=== PATIENT | female | born 1975 | race Caucasian/White ===

== ENCOUNTER 2017-12-08 11:43 | Emergency (ER) | payer OTHER ==
[~2017-12-08] VITALS: Ht 149.9 cm; Wt 72.1 kg
[2017-12-08 12:12] LABS: URINE BILIRUBIN NEGATIVE (Negative); URINE BLOOD NEGATIVE (Negative); URINE CLARITY CLEAR; URINE COLOR YELLOW; URINE GLUCOSE-RANDOM* NEGATIVE (Negative); URINE KETONES NEGATIVE (Negative); URINE LEUKOCYTES-REFLEX NEGATIVE (Negative); URINE NITRITE-REFLEX NEGATIVE (Negative); URINE PROTEIN (DIPSTICK) NEGATIVE (Negative); URINE SPECIFIC GRAVITY >= 1.030 (1.005-1.035)
[2017-12-08 12:52] LABS: CALCIUM 8.5 mg/dL (8.5-10.1); CREATININE 0.8 mg/dL (0.6-1.0); POTASSIUM 3.6 mmol/L (3.5-5.1)
[2017-12-08 12:58] LABS: ABSOLUTE NEUTROPHILS 3.4 thou/uL (1.4-8.2); ALBUMIN 3.9 g/dL (3.4-5.0); BASOPHILS 0.7 % (0.0-2.0); EOSINOPHILS 5.3 % (0.0-3.0); HEMATOCRIT 35.9 % (37.0-47.0); HEMOGLOBIN 12.6 gm/dL (12.0-15.0); LYMPHOCYTES 24.3 % (24.0-44.0); MCH 34.8 pg (26.0-34.0); MCHC 35.1 g/dL (28.0-37.0); MCV 99.2 fL (80.0-100.0); MONOCYTES 7.4 % (1.0-8.0); PLATELET COUNT 203 thou/uL (150-400); POLYS 62.3 % (36.0-66.0); RBC 3.62 mil/uL (4.20-5.00); RDW 12.4 % (10.5-14.5); TOTAL BILIRUBIN 0.2 mg/dL (<0.1-1.0); TOTAL PROTEIN 7.8 g/dL (6.4-8.2); WBC 5.4 thou/uL (4.0-11.0)
[2017-12-08] MEDS ORDERED: NAPROSYN500 MG PO (14:00)
[2017-12-08 14:47] VITALS: BP 126/80
== END 2017-12-08 14:48 | disposition home or self-care (01) ==
LOC: ER 11:43
PROVIDERS: Emergency Medicine
DX: R10.31 Right lower quadrant pain (principal); M79.605 Pain in left leg; F32.9 Major depressive disorder, single episode, unspecified; Z98.890 Other specified postprocedural states; Z88.8 Allergy status to other drugs, medicaments and biological substances

== ENCOUNTER → 2020-04-07 | Outpatient (CLI) | payer OTHER ==
[~2020-04-07] MED LIST: NAPROSYN500 MG PO
== END ==
LOC: RAD 15:27
PROVIDERS: ATTEND Neuromusculoskeletal Medicine & OMM
DX: M48.02 Spinal stenosis, cervical region (principal); M54.12 Radiculopathy, cervical region; M19.041 Primary osteoarthritis, right hand; M19.042 Primary osteoarthritis, left hand

== ENCOUNTER → 2020-04-25 | Outpatient (CLI) | payer OTHER | LOC: MRI 13:13 | PROVIDERS: ATTEND Neuromusculoskeletal Medicine & OMM | DX: M51.37 Other intervertebral disc degeneration, lumbosacral region (principal); M48.07 Spinal stenosis, lumbosacral region ==

== ENCOUNTER → 2020-05-30 | Outpatient (CLI) | payer OTHER ==
[~2020-05-30] VITALS: Ht 144.8 cm; Wt 52.2 kg
[~2020-05-30] MED LIST changes: +ADVIL MIGRAINE200 M1 PO; +MEDROLDOSEPACK PO; +MOBIC15 MG PO; +SUPER THERAVIT1 EACH PO
[2020-05-30 13:54] VITALS: BP 130/71
--- NOTE | 2020-05-30 14:18 | NUR ---
Pain Clinic Assessment: 1. History of Osteoarthritis: SPINE History of Rheumatoid Arthritis: Not Applicable 2. Height: 4 ft. 9 in. 144.8 cm. Weight: 115.0 lb. oz. 52.164 kg. Patient's BMI: 24.9 3. Vital Signs: BP: 130/71 Pulse: 85 Resp: 14 Temp: 02 Sat: 96 ECG Mon: 4. Pain Intensity: 6 5. Fall Risk: Dizziness: N Needs help standing or walking: Y Fallen in the last 3 months: N Fall risk comments: 6. Patient on Blood Thinner: None 7. History of Hypertension: N 8. Opioid Therapy greater than 6 weeks: N Opiate Contract Signed: 9. Risk Assessment Tool Provided: * 10. Functional Assessment Tool: 53/ 11. Recreational Drug Use: Never Drug Type: Tobacco Use: Never Smoker Tobacco Type: Amount or Packs/day: How Many Years: Alcohol Use: No Frequency: Quant:
== END ==
LOC: PAIN 07:00
PROVIDERS: ATTEND Anesthesiology Pain Medicine
DX: M54.16 Radiculopathy, lumbar region (principal); G89.29 Other chronic pain; Z79.891 Long term (current) use of opiate analgesic

== ENCOUNTER → 2020-06-06 | Outpatient (CLI) | payer OTHER ==
[~2020-06-06] VITALS: Ht 144.8 cm; Wt 52.4 kg
[2020-06-06 10:58] VITALS: BP 106/72
--- NOTE | 2020-06-06 11:17 | NUR ---
Pain Clinic Assessment: 1. History of Osteoarthritis: SPINE History of Rheumatoid Arthritis: Not Applicable 2. Height: 4 ft. 9 in. 144.8 cm. Weight: 115.6 lb. oz. 52.436 kg. Patient's BMI: 25.0 3. Vital Signs: BP: 106/72 Pulse: 81 Resp: 14 Temp: 02 Sat: 98 ECG Mon: 4. Pain Intensity: 3 5. Fall Risk: Dizziness: N Needs help standing or walking: N Fallen in the last 3 months: N Fall risk comments: 6. Patient on Blood Thinner: None 7. History of Hypertension: N 8. Opioid Therapy greater than 6 weeks: N Opiate Contract Signed: 9. Risk Assessment Tool Provided: * 10. Functional Assessment Tool: 53/ 11. Recreational Drug Use: Never Drug Type: Tobacco Use: Never Smoker Tobacco Type: Amount or Packs/day: How Many Years: Alcohol Use: No Frequency: Quant:
== END | disposition home or self-care (01) ==
LOC: PAIN 06:56
PROVIDERS: ATTEND Anesthesiology Pain Medicine
DX: M54.16 Radiculopathy, lumbar region (principal); M48.062 Spinal stenosis, lumbar region with neurogenic claudication; G89.29 Other chronic pain; M54.2 Cervicalgia; F32.9 Major depressive disorder, single episode, unspecified; Z98.890 Other specified postprocedural states; Z79.899 Other long term (current) drug therapy; Z88.8 Allergy status to other drugs, medicaments and biological substances

== ENCOUNTER → 2020-07-23 | Outpatient (CLI) | payer OTHER ==
[~2020-07-23] VITALS: Ht 144.8 cm; Wt 54.2 kg
[~2020-07-23] MED LIST changes: +HYDROCODON-ACE1 EAC7 PO
[2020-07-23 14:03] VITALS: BP 115/70
--- NOTE | 2020-07-23 14:11 | NUR ---
Pain Clinic Assessment: 1. History of Osteoarthritis: SPINE History of Rheumatoid Arthritis: Not Applicable 2. Height: 4 ft. 9 in. 144.8 cm. Weight: 119.4 lb. oz. 54.159 kg. Patient's BMI: 25.8 3. Vital Signs: BP: 115/70 Pulse: 72 Resp: 14 Temp: 02 Sat: 98 ECG Mon: 4. Pain Intensity: 8 5. Fall Risk: Dizziness: N Needs help standing or walking: N Fallen in the last 3 months: N Fall risk comments: 6. Patient on Blood Thinner: None 7. History of Hypertension: N 8. Opioid Therapy greater than 6 weeks: N Opiate Contract Signed: 9. Risk Assessment Tool Provided: 0-low risk 10. Functional Assessment Tool: 53/ 11. Recreational Drug Use: Never Drug Type: Tobacco Use: Never Smoker Tobacco Type: Amount or Packs/day: How Many Years: Alcohol Use: No Frequency: Quant:
== END ==
LOC: PAIN 06:56
PROVIDERS: ATTEND Anesthesiology Pain Medicine
DX: M54.5 Low back pain (principal); F32.9 Major depressive disorder, single episode, unspecified; M54.16 Radiculopathy, lumbar region; G89.29 Other chronic pain; M54.2 Cervicalgia

== ENCOUNTER → 2020-09-26 | Outpatient (CLI) | payer OTHER ==
[~2020-09-26] VITALS: Ht 144.8 cm; Wt 56.2 kg
[~2020-09-26] MED LIST changes: +IBUPROFEN 800800 M1 PO
[2020-09-26 12:39] VITALS: BP 113/76
--- NOTE | 2020-09-26 12:43 | NUR ---
Pain Clinic Assessment: 1. History of Osteoarthritis: SPINE History of Rheumatoid Arthritis: Not Applicable 2. Height: 4 ft. 9 in. 144.8 cm. Weight: 124.0 lb. oz. 56.246 kg. Patient's BMI: 26.8 3. Vital Signs: BP: 113/76 Pulse: 70 Resp: 14 Temp: 02 Sat: 98 ECG Mon: 4. Pain Intensity: 9 5. Fall Risk: Dizziness: N Needs help standing or walking: N Fallen in the last 3 months: N Fall risk comments: 6. Patient on Blood Thinner: None 7. History of Hypertension: N 8. Opioid Therapy greater than 6 weeks: N Opiate Contract Signed: 9. Risk Assessment Tool Provided: 0-low risk 10. Functional Assessment Tool: 53/ 11. Recreational Drug Use: Never Drug Type: Tobacco Use: Never Smoker Tobacco Type: Amount or Packs/day: How Many Years: Alcohol Use: No Frequency: Quant:
== END | disposition home or self-care (01) ==
LOC: PAIN 07:06
PROVIDERS: ATTEND Anesthesiology Pain Medicine
DX: M54.16 Radiculopathy, lumbar region (principal); G89.29 Other chronic pain; M48.062 Spinal stenosis, lumbar region with neurogenic claudication; M54.2 Cervicalgia; M19.90 Unspecified osteoarthritis, unspecified site; F32.9 Major depressive disorder, single episode, unspecified; Z98.890 Other specified postprocedural states; Z79.899 Other long term (current) drug therapy; Z88.8 Allergy status to other drugs, medicaments and biological substances

== ENCOUNTER → 2020-11-21 | Outpatient (CLI) | payer OTHER ==
[~2020-11-21] VITALS: Ht 144.8 cm; Wt 55.9 kg
[2020-11-21 13:57] VITALS: BP 104/62
--- NOTE | 2020-11-21 14:35 | NUR ---
Pain Clinic Assessment: 1. History of Osteoarthritis: SPINE History of Rheumatoid Arthritis: Not Applicable 2. Height: 4 ft. 9 in. 144.8 cm. Weight: 123.3 lb. oz. 55.928 kg. Patient's BMI: 26.7 3. Vital Signs: BP: 104/62 Pulse: 68 Resp: 14 Temp: 02 Sat: 96 ECG Mon: 4. Pain Intensity: 8 5. Fall Risk: Dizziness: N Needs help standing or walking: N Fallen in the last 3 months: N Fall risk comments: 6. Patient on Blood Thinner: None 7. History of Hypertension: N 8. Opioid Therapy greater than 6 weeks: N Opiate Contract Signed: 9. Risk Assessment Tool Provided: 0-low risk 10. Functional Assessment Tool: 53/70 11. Recreational Drug Use: Never Drug Type: Tobacco Use: Never Smoker Tobacco Type: Amount or Packs/day: How Many Years: Alcohol Use: No Frequency: Quant:
== END | disposition home or self-care (01) ==
LOC: PAIN 10:27
PROVIDERS: ATTEND Anesthesiology Pain Medicine
DX: M54.16 Radiculopathy, lumbar region (principal); M54.5 Low back pain; G89.29 Other chronic pain; I73.9 Peripheral vascular disease, unspecified; M54.2 Cervicalgia; M19.90 Unspecified osteoarthritis, unspecified site; F32.9 Major depressive disorder, single episode, unspecified; Z98.890 Other specified postprocedural states; Z79.899 Other long term (current) drug therapy; Z88.8 Allergy status to other drugs, medicaments and biological substances

== ENCOUNTER → 2021-01-21 | Outpatient (CLI) | payer OTHER ==
[~2021-01-21] VITALS: Ht 144.8 cm; Wt 53.2 kg
[~2021-01-21] MED LIST changes: +NEURONTIN 300M300 M2 PO
[2021-01-21 12:21] VITALS: BP 116/75
--- NOTE | 2021-01-21 12:27 | NUR ---
Pain Clinic Assessment: 1. History of Osteoarthritis: SPINE History of Rheumatoid Arthritis: Not Applicable 2. Height: 4 ft. 9 in. 144.8 cm. Weight: 117.2 lb. oz. 53.161 kg. Patient's BMI: 25.4 3. Vital Signs: BP: 116/75 Pulse: 81 Resp: 14 Temp: 02 Sat: 100 ECG Mon: 4. Pain Intensity: 7 5. Fall Risk: Dizziness: N Needs help standing or walking: N Fallen in the last 3 months: N Fall risk comments: 6. Patient on Blood Thinner: None 7. History of Hypertension: N 8. Opioid Therapy greater than 6 weeks: N Opiate Contract Signed: 9. Risk Assessment Tool Provided: 0-low risk 10. Functional Assessment Tool: 53/ 11. Recreational Drug Use: Never Drug Type: Tobacco Use: Never Smoker Tobacco Type: Amount or Packs/day: How Many Years: Alcohol Use: No Frequency: Quant:
== END | disposition home or self-care (01) ==
LOC: PAIN 11:40
PROVIDERS: ATTEND Anesthesiology Pain Medicine
DX: M54.16 Radiculopathy, lumbar region (principal); G89.29 Other chronic pain; M48.062 Spinal stenosis, lumbar region with neurogenic claudication; M19.90 Unspecified osteoarthritis, unspecified site; Z98.890 Other specified postprocedural states; Z79.899 Other long term (current) drug therapy; Z88.8 Allergy status to other drugs, medicaments and biological substances